=== PATIENT | female | born 1995 | race Caucasian/White ===

== ENCOUNTER 2022-03-22 12:27 | Emergency (ER) | payer BC, SELFPAY ==
[2022-03-22 12:29] VITALS: BP 109/88; PULSE 78; RESP 14; TEMP 36.2; O2SAT 100; BMI 25.6
[2022-03-22] MEDS: Metoclopramide 10 MG/2 ML Vial IV (13:27)
[2022-03-22] MEDS: 0.9% Normal Saline 1,000 ML 1000 ML IV ×2 (13:27→14:27)
[2022-03-22 13:40] LABS: Color, Urine Yellow (Yellow); Glucose, Dipstick Normal (Normal); Leukocyte Esterase-Dipstick 500 /ul (Negative); Nitrite-Dipstick Negative (Negative); Occult Blood-Urine 50 /ul (Negative); Protein-Dipstick 30 mg/dl (Negative); Specific Gravity, Urine 1.025 (1.002-1.030); Urine Clarity Sl. Cloudy (Clear); Urine Urobilinogen 4 mg/dl (Normal)
[2022-03-22 13:41] LABS: Anion Gap 10 (5-15); BUN 8 mg/dL (7-18); BUN/Creat Ratio 11.4 RATIO (10-20); Calcium,Total 9.8 mg/dL (8.5-10.1); Chloride 104 mmol/L (98-107); EST Glomerular Filtration Rate 108 mL/min (>60); Est Glom Filt Rate - Afr Amer 130 mL/min (>60); Estimated Creatinine Clearance 97.17 ml/min; Glucose 82 mg/dL (74-106); Potassium 3.6 mmol/L (3.5-5.1); Sodium Level 139 mmol/L (136-145)
[2022-03-22 13:43] LABS: Urine Bilirubin Dipstick 1 mg/dL (Negative)
[2022-03-22 13:45] LABS: Ketone-Dipstick 150 mg/dl (Negative)
[2022-03-22 13:51] LABS: Red Blood Cells-Urine 0-5 SEEN /hpf (0-5); Squamous Epithelial Cells - UA 25-50 SEEN /hpf (5-10); White Blood Cells 5-10 SEEN /hpf (0-5)
[2022-03-22 13:52] LABS: Bacteria 2+ /hpf (None Seen); Mucous, Urine 1+ /hpf (<or=2+)
[2022-03-22 13:54] LABS: Internal QC Validated? YES +Cl - CLEAR BKGD
[2022-03-22 13:55] LABS: Pregnancy, Urine Positive Negative
[2022-03-22] MEDS: Cephalexin 250 MG Capsule 500 MG PO (16:17)
--- NOTE | 2022-03-22 17:53 | ED.VIS.FEGU ---
HPI HPI - Female History of Present Illness Chief Complaint: Informant: patient Narrative Narrative: 8-week gestation by dates presents with persistent vomiting for 2 days. No hematemesis. No diarrhea. No urinary symptoms. No abdominal pain. No vaginal bleeding or abnormal discharge. Her OB appointments not till next month. She was told to use [id number] B6. She is unable to keep anything down. She denies any alcohol tobacco or any illicit drug use. PFSH PFSH Medical History no medical history Home Medications cephalexin 500 mg capsule 500 mg PO Q12 #10 caps 03/22/22 [Rx Last Taken Unknown] doxylamine 10 mg-pyridoxine (vit B6) 10 mg tablet,delayed release (Diclegis) 1 tab PO BID #60 tabs 03/22/22 [Rx Last Taken Unknown] Allergy/AdvReac Type Severity Reaction Status Date / Time No Known Allergies Allergy Verified 03/22/22 12:29 Family History no significant family his Surgical History no surgical history Social History Smoking Status: Never smoker ROS ROS ED Constitutional Constitutional ED: Denies chills, fever(s) or sweats Eyes Eyes: Denies change in vision ENT ENT ED: Denies dysphagia or sore throat Cardiovascular Cardiovascular: Denies chest pain, leg edema, palpitations or racing heartbeat Respiratory/Chest Respiratory/Chest: Denies cough, dyspnea or dyspnea on exertion Gastrointestinal Gastrointestinal: Reports nausea and vomiting; Denies abdominal pain or diarrhea Genitourinary Genitourinary ED: Denies dysuria, hematuria or urinary frequency Musculoskeletal Musculoskeletal: Denies back pain, extremity pain or neck pain Integumentary Denies rash or wounds Neurologic Neurologic: Denies headache(s), paresthesias or weakness EXAM Physical Exam Const Vital Signs: 03/22/22 12:29 Temperature 97.2 F L Temperature Source Temporal Pulse Rate 78 Respiratory Rate 14 Blood Pressure 109/88 H Blood Pressure Mean 95 Pulse Ox 100 Oxygen Delivery Method Room Air Positive well nourished and well developed General Appearance ED: well developed and NAD HEENT Reports dry mucous membranes HEENT Narrative: Mild dry mucosal membranes normocephalic and atraumatic Mouth ED: Yes dry mucous membranes Mouth: dry mucous membranes Eyes PERRL, EOMs intact bilaterally and conjunctivae normal General Eye ED: Yes normal appearance of both eyes Neck no lymphadenopathy and supple General: Negative for tenderness Chest Wall Chest: Negative for tenderness Resp normal respiratory effort and normal air movement Effort and Inspection: symmetric chest movement; Negative for respiratory distress Cardio regular rate, regular rhythm and no murmurs Peripheral Pulses: pulses 2+ throughout GI normal to inspection, nondistended, normoactive bowel sounds and non-tender Palpation: Negative for guarding or rebound tenderness present Back/Spine no CVA tenderness and no thoracic nor lumbar tenderness Extremity normal to inspection General Extremety ED: Negative for edema or tenderness General Extremity: Negative for edema Neuro oriented x3 and no sensory deficits noted Sensorium / Orientation: awake and alert Skin no rashes or lesions noted and no wounds MDM MDM MDM Narrative Medical decision making narrative: Patient with vomiting for 2 days. IVs placed 2 L fluids ordered. is positive, urine notes ketones along with signs of infection. Culture sent. Electrolytes are all normal. She is given IV Reglan with improvement of symptoms. Started on Keflex for UTI in . She is tolerating oral fluids. Prescription for Diclegis and Keflex sent to her pharmacy. She will continue oral hydration at home she will keep follow-up with her OB. All questions were answered. Lab Data Attestation: I reviewed the patient's lab results. Labs: Laboratory Results - last 24 hr 03/22/22 03/22/22 13:20 13:25 Sodium 139 Potassium 3.6 Chloride 104 Carbon Dioxide 25.0 Anion Gap 10 BUN 8 Creatinine 0.70 Estim Creat Clear Calc 97.17 Est GFR (MDRD) Af Amer 130 Est GFR (MDRD) Non-Af 108 BUN/Creatinine Ratio 11.4 Glucose 82 Calcium 9.8 Urine Color Yellow Urine Clarity Sl. Cloudy Urine pH 5.0 Ur Specific [place] 1.025 Urine Protein 30 H Urine Glucose (UA) Normal Urine Ketones 150 A* Urine Occult Blood 50 H Urine Nitrite Negative Urine Bilirubin 1 H Urine Urobilinogen 4 H Ur Leukocyte Esterase 500 H Urine RBC 0-5 SEEN Urine WBC 5-10 SEEN Ur Squamous Epith Cells 25-50 SEEN Urine Bacteria 2+ Urine Mucus 1+ Urine Test Positive H Discharge Plan Triage Chief Complaint: ED Provider: Joe Ybarra Dx/Rx/DC Orders Clinical Impression: Vomiting during , First trimester , UTI in Instructions: Urinary Tract Infections in Women, 1st Trimester, ED Hyperemesis Gravidarum Prescriptions: New cephalexin [cephalexin] 500 mg capsule 500 mg PO Q12 Qty: 10 0RF doxylamine-pyridoxine (vit B6) [Diclegis] 10-10 mg tablet,delayed release (DR/EC) 1 tab PO BID Qty: 60 0RF Rx Instructions: Start taking at night daily, may take also in the mornings if symptoms persist. Primary Care Provider: Moshe Andersen Referrals: Moshe Andersen MD [Primary Care Provider] - Activity Restrictions/Additional Instructions: Take medications as prescribed. Follow-up with your OB doctor. Disposition Disposition: Home, Self Care Discharge Date/Time: 03/22/22 17:03
== END 2022-03-22 17:03 | disposition home or self-care (01) ==
PROVIDERS: Emergency Provider Emergency Medicine; PCP Family Medicine; Visit Provider Emergency Medicine
DX: O23.41 Unspecified infection of urinary tract in pregnancy, first trimester (principal); O21.9 Vomiting of pregnancy, unspecified; Z3A.08 8 weeks gestation of pregnancy
CPT/HCPCS: 80048; 81001; 81025; 87086; 87088; 96361; 96374; 99284; J7030; A4216

== ENCOUNTER 2022-04-21 16:08 | Emergency (ER) | payer BC, SELFPAY ==
[2022-04-21 16:09] VITALS: BP 124/83; PULSE 78; RESP 14; TEMP 36.8; O2SAT 98; BMI 25.3
--- NOTE | 2022-04-21 16:44 | EDS_ITS ---
HPI History of Present Illness Chief Complaint: Nausea/Vomiting Informant: patient Narrative Narrative: 27-year-old female presenting to the emergency department with a chief complaint is nausea and vomiting. Patient states that she is 12 weeks . Her OB/ VETERINARY PHARMACOLOGIST is in [place]. She states that 1 month ago she was diagnosed with hyperemesis gravidarum. She was prescribed some Reglan which she took last night today but for the past 2 days has not been able to keep any fluids in her. She was sent to the emergency department out of concern for dehydration. The Reglan has not been helping her. She notes decreased urinary output. She denies any syncope. No vaginal bleeding or leakage of fluid. PFSH PFSH Home Medications cephalexin 500 mg capsule 500 mg PO Q12 #10 caps 03/22/22 [Rx Last Taken Unknown] doxylamine 10 mg-pyridoxine (vit B6) 10 mg tablet,delayed release (Diclegis) 1 tab PO BID #60 tabs 03/22/22 [Rx Last Taken Unknown] ondansetron HCl 4 mg tablet 4 mg PO Q6H PRN nausea and vomiting #15 tabs 04/21/22 [Rx Last Taken Unknown] Allergy/AdvReac Type Severity Reaction Status Date / Time No Known Allergies Allergy Verified 04/21/22 16:09 Social History (Updated 04/21/22 @ 16:[address] Addi Machado, DO) Smoking Status: Never smoker substance use type: does not use ROS ROS ED Constitutional Constitutional ED: Denies chills or weight loss Eyes Eyes: Denies change in vision or diplopia ENT ENT ED: Denies ear pain, rhinorrhea or sore throat Cardiovascular Cardiovascular: Denies chest pain, orthopnea, palpitations or racing heartbeat Respiratory/Chest Respiratory/Chest: Denies cough, dyspnea or orthopnea Gastrointestinal Gastrointestinal: Reports nausea and vomiting; Denies abdominal pain or diarrhea Genitourinary Genitourinary ED: Denies dysuria, hematuria or urinary frequency Musculoskeletal Musculoskeletal: Denies arthralgias or myalgias Integumentary Denies abscess or rash Neurologic Neurologic: Denies headache(s) or weakness Psychiatric Psychiatric: Denies anxiety, depression, suicidal ideation or suicidal thoughts Endocrine Endocrinology: Denies polydipsia, polyphagia or polyuria Allergic/Immunologic Allergic/Immunologic ED: Denies mouth swelling, tongue swelling or urticaria EXAM Physical Exam Const Vital Signs: 04/21/22 16:09 Temperature 98.2 F Temperature Source Temporal Pulse Rate 78 Respiratory Rate 14 Blood Pressure 124/83 H Blood Pressure Mean 96 Pulse Ox 98 Oxygen Delivery Method Room Air Positive well nourished and well developed General Appearance ED: well developed HEENT Reports normocephalic, head/scalp atraumatic and moist mucous membranes Eyes PERRL and EOMs intact bilaterally Neck no lymphadenopathy, supple and no JVD Resp normal respiratory effort and clear to auscultation bilaterally Cardio regular rate, regular rhythm and no murmurs GI normal to inspection, nondistended, normoactive bowel sounds and non-tender Palpation: soft Back/Spine no CVA tenderness and normal ROM Extremity normal to inspection General Extremety ED: Negative for edema General Extremity: Negative for edema Neuro oriented x3 and CN's II-XII intact bilaterally Sensorium / Orientation: alert Motor Exam: strength 5/5 throughout Psych mental status grossly normal Mood & Affect: Negative for depressed or tearful Skin no rashes or lesions noted and no wounds MDM MDM MDM Narrative Medical decision making narrative: Patient received a liter of IV fluids and Zofran. She is feeling better. U rinalysis was contaminated but did show 150 ketones. Overall she is feeling better. I will write her prescription for Zofran. Would recommend following up with her EVENT SPECIALIST return if worsening or concerns Lab Data Labs: Laboratory Results - last 24 hr 04/21/22 17:47 Urine Color [place] Urine Clarity Cloudy Urine pH 5.0 Ur Specific [place] 1.030 Urine Protein 30 H Urine Glucose (UA) Normal Urine Ketones 150 A* Urine Occult Blood 10 H Urine Nitrite Negative Urine Bilirubin 1 H Urine Urobilinogen 1 H Ur Leukocyte Esterase 25 H Urine RBC 0 SEEN Urine WBC 5-10 SEEN Ur Squamous Epith Cells 10-25 SEEN Urine Bacteria 2+ Urine Mucus 0 SEEN Discharge Plan Triage Chief Complaint: Nausea/Vomiting ED Provider: Addi Machado Dx/Rx/DC Orders Clinical Impression: Hyperemesis gravidarum, Acute dehydration Instructions: ED Hyperemesis Gravidarum Prescriptions: New ondansetron HCl 4 mg tablet 4 mg PO Q6H PRN (Reason: nausea and vomiting) Qty: 15 0RF No Action cephalexin [cephalexin] 500 mg capsule 500 mg PO Q12 Qty: 10 0RF doxylamine-pyridoxine (vit B6) [Diclegis] 10-10 mg tablet,delayed release (DR/EC) 1 tab PO BID Qty: 60 0RF Rx Instructions: Start taking at night daily, may take also in the mornings if symptoms persist. Primary Care Provider: Moshe Andersen Referrals: Moshe Andersen MD [Primary Care Provider] - Disposition Disposition: Home, Self Care
[2022-04-21] MEDS: Ondansetron 4 MG/2 ML Vial IV (16:53)
[2022-04-21] MEDS: 0.9% Normal Saline 1,000 ML 999 ML IV (16:53)
[2022-04-21 17:59] LABS: Mucous, Urine 0 SEEN /hpf (<or=2+); Red Blood Cells-Urine 0 SEEN /hpf (0-5)
[2022-04-21 18:10] LABS: Color, Urine Amber (Yellow); Glucose, Dipstick Normal (Normal); Leukocyte Esterase-Dipstick 25 /ul (Negative); Nitrite-Dipstick Negative (Negative); Occult Blood-Urine 10 /ul (Negative); Protein-Dipstick 30 mg/dl (Negative); Urine Clarity Cloudy (Clear); Urine Urobilinogen 1 mg/dl (Normal)
[2022-04-21 18:24] LABS: Urine Bilirubin Dipstick 1 mg/dL (Negative)
[2022-04-21 18:25] LABS: Bacteria 2+ /hpf (None Seen); Ketone-Dipstick 150 mg/dl (Negative); Squamous Epithelial Cells - UA 10-25 SEEN /hpf (5-10); White Blood Cells 5-10 SEEN /hpf (0-5)
== END 2022-04-21 18:44 | disposition home or self-care (01) ==
PROVIDERS: Emergency Provider Emergency Medicine; PCP Family Medicine; Visit Provider Emergency Medicine
DX: O21.1 Hyperemesis gravidarum with metabolic disturbance (principal); Z3A.12 12 weeks gestation of pregnancy
CPT/HCPCS: 81001; 96361; 96374; 99282; J7030; A4216; J2405

== ENCOUNTER 2022-04-22 04:58 | Emergency (ER) | payer BC, SELFPAY ==
[2022-04-22 05:00] VITALS: BP 123/88; PULSE 68; RESP 18; TEMP 36.1; O2SAT 98; BMI 25.2
--- NOTE | 2022-04-22 05:25 | EDS_ITS ---
HPI HPI - Female History of Present Illness Chief Complaint: Vag Bld, Preg Informant: patient Narrative Narrative: Patient is G1, P0 27-year-old female presenting after spontaneous miscarriage at home. Patient states she had cramping woke up with of what felt like fluid running down her leg. She notes that she was having significant vaginal bleeding. She sat on the toilet and passed the fetus. She called her OB who recommend she come to the ER. Patient did not bring the fetus to the ER. She continues have cramping and vaginal bleeding. She is not sure what her blood type is. She follows through [facility]. has been complicated with hyperemesis gravidarum. Patient has no other complaints at this time. PFSH PFSH Home Medications ondansetron HCl 4 mg tablet 4 mg PO Q6H PRN nausea and vomiting #15 tabs 04/21/22 [Rx Last Taken Unknown] ibuprofen 600 mg tablet 600 mg PO Q6H PRN PRN Pain Score 1-10/10 #20 tabs 04/22/22 [Rx Last Taken Unknown] [id number] 1 mg tablet 1 tab PO DAILY 04/22/22 [History Last Taken Unknown] Allergy/AdvReac Type Severity Reaction Status Date / Time No Known Allergies Allergy Verified 04/22/22 05:04 Social History Smoking Status: Never smoker substance use type: does not use ROS ROS ED Constitutional Constitutional ED: Denies chills or fever(s) Eyes Eyes: Denies change in vision ENT ENT ED: Denies rhinorrhea or sore throat Cardiovascular Cardiovascular: Denies chest pain Respiratory/Chest Respiratory/Chest: Denies cough Gastrointestinal Gastrointestinal: Reports abdominal pain and nausea; Denies vomiting Genitourinary Genitourinary ED: Reports other Details: vaginal bleeding, leakage of fluids, miscarriage at home ; Denies dysuria or urinary frequency Musculoskeletal Musculoskeletal: Denies myalgias Integumentary Denies rash Neurologic Neurologic: Denies headache(s) or weakness Psychiatric Psychiatric: Denies anxiety Hematologic/Lymphatic Hematologic/Lymphatic: Denies easy bleeding or easy bruising EXAM Physical Exam Const Vital Signs: 04/22/22 05:00 Temperature 97 F L Temperature Source Temporal Pulse Rate 68 Respiratory Rate 18 Blood Pressure 123/88 H Blood Pressure Mean 99 Pulse Ox 98 Positive well nourished and well developed General Appearance ED: well developed and NAD HEENT Reports moist mucous membranes Eyes PERRL and EOMs intact bilaterally Neck supple Chest Wall inspection of chest normal and palpation of chest normal Resp normal respiratory effort and clear to auscultation bilaterally Cardio regular rate and regular rhythm GI normal to inspection, nondistended, normoactive bowel sounds and soft to palpation Palpation: Negative for tender or guarding Narrative: Normal external genitalia. On speculum exam patient has the placenta in the vaginal canal. Shara forceps used to pull it out and patient does not have any significant bleeding after this. Cervix is dilated. Uterus is enlarged on bimanual exam. Back/Spine no CVA tenderness Extremity normal to inspection and full ROM Neuro oriented x3 Sensorium / Orientation: alert Motor Exam: Negative for general weakness Psych mental status grossly normal Mood & Affect: tearful Skin no rashes or lesions noted and no wounds MDM MDM MDM Narrative Medical decision making narrative: Patient evaluated for spontaneous miscarriage at home. Patient is 12 weeks gestation. I will obtain CBC to check hemoglobin as well as Rh to see if patient requires RhoGAM. Patient is able to deliver the placenta does not have any significant bleeding. Spoke with nurse engineer/conductor for [facility], who has no further recommendations and states the patient is hemodynamically stable with controlled bleeding can follow-up outpatient with her OFFICE WORKFORCE PLANNER. Patient is given a dose of Toradol as well as IV fluids in the emergency room. Patient is given a dose of Ativan for nerves per her request. She is O+ and does not require RhoGAM. Patient will follow up with her OFFICE WORKFORCE PLANNER today. Counseled return precautions including increased vaginal bleeding, lightheadedness or going through 2 pads an hour for 2 hours in a row. Discharged home in stable condition. Lab Data Labs: Laboratory Results - last 24 hr 04/22/22 04/22/22 05:05 05:05 WBC 11.4 H RBC 4.39 Hgb 13.3 Hct 37.0 MCV 84.3 MCH 30.3 MCHC 35.9 RDW Std Deviation 36.1 RDW Coeff of Panfilo 11.8 Plt Count 216 MPV 11.2 Immature Gran % (Auto) 0.400 Neut % (Auto) 72.5 H Lymph % (Auto) 20.9 [place] % (Auto) 5.7 Eos % (Auto) 0.2 Baso % (Auto) 0.3 Absolute Neuts (auto) 8.3 H Absolute Lymphs (auto) 2.39 Nucleated RBC % 0 Blood Type O POSITIVE Discharge Plan Triage Chief Complaint: Vag Bld, Preg ED Provider: Alix Jo Dx/Rx/DC Orders Clinical Impression: Complete miscarriage, Vaginal bleeding Instructions: ED Miscarriage Spontaneous Prescriptions: New ibuprofen 600 mg tablet 600 mg PO Q6H PRN PRN (Reason: Pain Score 1-10/10) Qty: 20 0RF No Action ondansetron HCl 4 mg tablet 4 mg PO Q6H PRN (Reason: nausea and vomiting) Qty: 15 0RF 1 mg Tablet 1 tab PO DAILY Primary Care Provider: Moshe Andersen Referrals: Moshe Andersen MD [Primary Care Provider] - Activity Restrictions/Additional Instructions: Follow-up with your OFFICE WORKFORCE PLANNER as soon as possbile. Disposition Disposition: Home, Self Care
[2022-04-22] MEDS: 0.9% Normal Saline 1,000 ML 1000 ML IV (05:30)
[2022-04-22] MEDS: Ketorolac 15 MG/ML Vial IV (05:30)
[2022-04-22 05:46] LABS: Absolute Lymphocyte Count 2.39 X10^3/uL (0.83-4.51); Absolute Neutrophil Count 8.3 X10^3/uL (2.0-7.7); Basophil# 0.03 X10^3/uL; Basophil% 0.3 % (0-1); Eosinophil# 0.02 X10^3/uL; Eosinophils% 0.2 % (0-5); Hemoglobin 13.3 g/dL (12.0-15.0); Lymphocyte # 2.39 X10^3/ul (0.83-4.51); Lymphocyte % 20.9 % (19-41); Mean Corp Hgb Conc 35.9 g/dL (32-36); Mean Corpuscular Hgb 30.3 pg (27.0-32.0); Mean Corpuscular Volume 84.3 fL (81-99); Mean Platelet Vol. 11.2 fl (6.2-12.0); Monocyte# 0.65 X10^3/uL; Monocyte% 5.7 % (0-10); NRBC Flagged by Analyzer 0 % (0-5); Neutrophil # 8.28 X10^3/uL (2.7-7.7); Neutrophil % 72.5 % (47-70); Platelet Count 216 K/mm3 (150-450); RBC Distribution Width CV 11.8 % (11.6-14.6); RBC Distribution Width SD 36.1 fl (35.1-43.9); Red Blood Count 4.39 M/mm3 (4.2-5.4); White Blood Count 11.4 K/mm3 (4.4-11.0)
[2022-04-22] MEDS: LORazepam 0.5 MG Tablet PO (06:54)
== END 2022-04-22 07:00 | disposition home or self-care (01) ==
PROVIDERS: Emergency Provider Emergency Medicine; PCP Family Medicine; Visit Provider Emergency Medicine
DX: O03.9 Complete or unspecified spontaneous abortion without complication (principal); Z79.899 Other long term (current) drug therapy
CPT/HCPCS: 85025; 86900; 86901; 96361; 96374; 99284; J7030; A4216